=== PATIENT | male | born 1965 | race Hispanic/Latino ===

== ENCOUNTER 2017-01-08 10:50 | Emergency (ER) | payer MEDICAID ==
[~2017-01-08] VITALS: Ht 162.6 cm; Wt 80.0 kg
[2017-01-08 10:55] VITALS: BP 176/110; PULSE 100; RESP 15; O2SAT 100
--- NOTE | 2017-01-08 11:19 | ED.REPORT ---
HPI-General Illness Date of Service Jan 08, 2017 ED Provider: João Coates MD Patient is a 51 year old male with a hx of heroin use, meth use, HTN, and chronic knee pain who presents to the ED requesting Suboxone. He is currently on Methadone, 100mg a day. He was seen by Dr. Troncoso 2 days ago at [facility]. He would like to do inpatient recovery but the program he is going to does not allow methadone use which is why he would like to switch. He denies vomiting, diarrhea, fever, abdominal pain, or any other symptoms. He does not use benzodiazepines. He last used meth yesterday. Nursing Notes Stated Complaint: MEDICATION Chief Complaint: Substance Abuse Nursing Notes Reviewed: Yes Allergies: Coded Allergies: Penicillins (Verified Allergy, Intermediate, Hives, 04/13/12) General Time Seen by MD: 11:05 Chief Complaint Other (Suboxone referral ) Hx Obtained From: Patient Arrived By: Walk-in Sudden in Onset?: No Recent Healthcare: Recent doctor visit Past Medical History Past Medical History Hep C Hiatal hernia chronic knee pain Reports: Hypertension Reports: Depression Past Surgical History I&D Smoking History Current Every Day Smoker Social History Drug Use: Meth, Other Other Social History: Local resident Ambulatory Status Independent Review of Systems +suboxone referral Full Review of Systems Constitutional: Denies: Fever GI: Denies: Abdominal pain, Diarrhea, Vomiting Complete sys rev & neg: except as marked. Physical Exam Vital Signs Vital Signs Date Time Temp Pulse Resp B/P Pulse Ox O2 Delivery O2 Flow Rate FiO2 01/08/17 10:55 36.7 100 15 176/110 100 Room Air Initial VS: Reviewed General/Constitutional: Awake, Alert, No acute distress Head / Eyes: Atraumatic, Normocephalic ENT: Airway patent Neck: Atraumatic, Supple, Full range of motion Respiratory / Chest: No respiratory distress Back: Full range of motion Skin: Color NL, Warm, Dry Neurologic: Oriented X3, Speech NL Psychiatric: Affect NL, Mood NL, Judgment/insight NL, Thought content NL Re-Eval/Medical Decision Med Decision/Clinical Course I went in the room at 1345 to talk to the patient but he had left without being discharged. Social work had not yet been able to see the patient. Plan essentially had been to see if he could get a bed date at [facility] and then discontinue the methadone as he entered and have them help with withdrawal symptoms upon arrival. Time of Eval: 13:46 Re-Evaluation/Progress Note: Patient left before social work evaluation. Counseled Regarding: Need for follow-up Discharge & Departure Primary Impression: Opiate addiction Substance use status: uncomplicated Qualified Code: F11.20 - Opioid dependence, uncomplicated Disposition: AGAINST MEDICAL ADVICE Discharge Condition All VS Reviewed: Yes Condition: Stable Scribe Attestation Portions of this note were transcribed by Luz Maria Trent. I, Dr. Coates personally performed the history, physical exam and medical decision-making; I reviewed and confirmed the accuracy of the information in the transcribed note. Signed by: Daniel Floyd, 01/08/17 at 1353. João Coates MD Jan 08, 2017 11:19 LUZ MARIA TRENT Jan 08, 2017 11:30
== END 2017-01-08 13:44 | disposition home or self-care (01) ==
LOC: SED 10:50
DX: F11.20 Opioid dependence, uncomplicated (principal); I10 Essential (primary) hypertension; F32.9 Major depressive disorder, single episode, unspecified; F17.200 Nicotine dependence, unspecified, uncomplicated; Z53.21 Procedure and treatment not carried out due to patient leaving prior to being seen by health care provider; Z88.0 Allergy status to penicillin